=== PATIENT | female | born 1960 | race Caucasian/White ===

== ENCOUNTER 2018-07-06 17:03 | Outpatient (CLI) | payer MEDICARE, MEDICAID | END 2018-07-06 17:04 | disposition home or self-care (01) | LOC: C.RADIC 17:03 | DX: M25.569 Pain in unspecified knee (principal) ==

== ENCOUNTER 2018-10-20 09:00 | Day surgery (SDC) | payer MEDICARE, MEDICAID ==
[2018-10-19 10:50] VITALS: BMI 38.4
[2018-10-20] MEDS ORDERED: Lactated Ringer's 500 ML IV SCH (11:15)
[2018-10-20] MEDS ORDERED: Lactated Ringer's 500 ML IV ONE (11:22)
[2018-10-20] MEDS ORDERED: Propofol 10 mg/ml Inj (20 ML) ONE (11:25)
[2018-10-20] MEDS ORDERED: Midazolam 2 MG/2 ML VIAL ONE (11:25)
[2018-10-20 11:50] VITALS: TEMP 98.2
[2018-10-20 13:56] VITALS: BP 112/67; PULSE 77; RESP 22; O2SAT 98
== END 2018-10-20 13:00 | disposition home or self-care (01) ==
LOC: C.ENDO 09:00
PROVIDERS: ATTEND Internal Medicine Gastroenterology
DX: K29.50 Unspecified chronic gastritis without bleeding (principal); K21.9 Gastro-esophageal reflux disease without esophagitis
CPT/HCPCS: 43239; 82948; 88305; 88312; 88342; J2250; J2704; J7120

== ENCOUNTER 2018-11-04 10:20 | Outpatient (CLI) | payer MEDICARE, MEDICAID | END 2018-11-04 10:21 | disposition home or self-care (01) | LOC: C.RADH 10:20 ==

== ENCOUNTER 2018-11-17 13:37 | Outpatient (CLI) | payer MEDICARE, MEDICAID | END 2018-11-17 13:38 | disposition home or self-care (01) | LOC: C.CTH 13:38 ==